=== PATIENT | female | born 1965 | race Caucasian/White ===

== ENCOUNTER 2018-10-14 11:53 | Inpatient (IN) | payer OTHER ==
[~2018-10-14] VITALS: Ht 175.3 cm; Wt 92.2 kg
[2018-10-14 12:06] VITALS: Ht 175.3 cm; Wt 92.2 kg
--- NOTE | 2018-10-14 12:32 | NUR ---
PATIENT BROUGHT IN BY HER FELLOW EMPLOYEE C/O CHEST PAIN THAT RADIATES TO THE BACK BETWEEN THE SHOULDER BLADES. PATIENT STATES PAIN STARTED TODAY AROUND 1130. PATIENT SAYS THAT SHE HAS BEEN UNDER A LOT OF STRESS LATELY AND FEELS THAT THIS MAY BE ANXIETY RELATED. PT ALSO STATES SHE TOOK .50MG OF ATIVAN AT 1130 WHICH HELPED RELIEVE SOME OF THE PAIN. BREATHING IS EVEN AND UNLABORED. NO ADDITIONAL S/S OF DISTRESS NOTED. PATIENT RECENTLY HAD SURGERY LAST WHERE SHE STATES THEY REMOVED PART OF HER COLON. SINCE THEN, SHE STATES SHE HAS INTERMITTENT PAIN IN HER LEFT LOWER QUADRANT. BOWEL SOUNDS PRESENT IN ALL 4 QUADRANTS. PATIENT LYING ON GURNEY RESTING. WILL CONTINUE TO MONITOR.
--- NOTE | 2018-10-14 12:58 | NUR ---
CORRECTION. PATIENT TOOK 0.5 MG OF ATIVAN AT 1130AM.
--- NOTE | 2018-10-14 13:12 | NUR ---
DR SAUNDERS AT BEDSIDE FOR MSE
--- NOTE | 2018-10-14 13:45 | NUR ---
X RAY IN BAY PERFORMING XRAY. BREATHING EVEN AND UNLABORED, NO S/S OF DISTRESS NOTED.
[2018-10-14 14:02] LABS: microscopic required? NO
[2018-10-14 14:15] LABS: BASOPHIL % 0.5 % (0-2); PLATELET COUNT 265 x10^3mcL (130-400); RED CELL DISTRIBUTION WIDTH 13.6 % (11.5-14.5)
[2018-10-14 14:22] LABS: UA SPECIFIC GRAVITY <=1.005 (1.005-1.035); urine erythrocyte NEGATIVE (NEGATIVE)
[2018-10-14 14:31] LABS: AMPHETAMINE QUAL UR NONE DETECTED (See below)
[2018-10-14 14:37] LABS: CARBON DIOXIDE 28.9 mmol/L (21-32); CHLORIDE SERUM 105 mmol/L (98-107); CREATININE SERUM 0.9 mg/dL (0.6-1.0); GFR1 > 60 mL/min; GLUCOSE SERUM 95 mg/dL (74-106); POTASSIUM SERUM 4.4 mmol/L (3.5-5.1); SODIUM SERUM 141 mmol/L (136-145)
[2018-10-14 14:41] LABS: ALBUMIN 3.5 g/dL (3.4-5.0); ALKALINE PHOSPHATASE 110 U/L (46-116); ALT/SGPT 32 U/L (14-59); AMYLASE 36 U/L (25-115); AST/SGOT 21 U/L (15-37); BILIRUBIN TOTAL 0.4 mg/dL (0.20-1.00); CHOLESTEROL 175 mg/dL (<200); LIPASE 138 IU/L (73-393); TOTAL PROTEIN, SERUM 7.3 g/dL (6.4-8.2)
[2018-10-14 14:42] LABS: HDL CHOLESTEROL 76 mg/dL (40-60)
[2018-10-14 14:49] LABS: T4(THYROXINE) 8.3 ug/dL (4.7-13.3)
--- NOTE | 2018-10-14 15:03 | NUR ---
PT IN ONI IN POSITION OF COMFORT ON CELL PHONE, RESP E/U, NO DISTRESS.
[2018-10-14] MEDS ORDERED: VENLAFAXINE HYD75 M1 PO (16:58)
[2018-10-14] MEDS ORDERED: METOPROLOL TART25 M1 PO (16:58)
[2018-10-14] MEDS ORDERED: LEVOXYL0.05 MG PO (16:59)
[2018-10-14 17:48] LABS: MAGNESIUM 2.3 mg/dL (1.8-2.4); PHOSPHOROUS 3.4 mg/dL (2.5-4.9)
--- NOTE | 2018-10-14 17:49 | NUR ---
REPORT CALLED TO CUONG REZA ON MS/T FOR FURTHER CARE OF OF PT
[2018-10-14 17:56] LABS: FREE T4 0.99 ng/dL (0.76-1.46); FREE THYROXINE INDEX 2.9 ug/dL (1.4-4.5); T4(THYROXINE) 8.8 ug/dL (4.7-13.3)
[2018-10-14 17:57] LABS: T3 TOTAL 1.18 ng/mL
[2018-10-14 18:02] LABS: CHOLESTEROL/HDL RATIO 2.3
--- NOTE | 2018-10-14 18:20 | NUR ---
RECEIVED PT FROM ER, REPORT GIVEN BY JUAQUIN BRENNAN. PT ARRIVED VIA GUERNEY ACCOMPANIED BY 2 FRIENDS. RESP EVEN AND LABORED. LUNG SOUNDS CTA, ON R/A. TELEMONITOR [address] READING NSR. PT DENIES CHEST PAIN, PRESSURE OR PALPIATIONS AT THIS TIME. ABDOMEN, SOFT, NONTENDER, NONDISTENDED. BOWEL SOUNDS ACTIVE. CDI. NO EDEMA NOTED. PERIPHERAL PULSES PALPABLE. IV CATH TO RFA PATENT, N/S LOCKED. SITE WNL. PT ORIENTED TO ROOM AND CALL LIGHT. BED IN LOW POSITION CALL LIGHT WITHIN REACH. ALL CARE WILL BE ENDORED TO MARIE ERZA.
[2018-10-14 18:23] VITALS: BP 131/95
--- NOTE | 2018-10-14 18:26 | NUR ---
RECEIVED PT FROM ED VIA SCAR. ORIENTED PT TO ROOM AND SURROUNDIGNS. IV NOTED TO RFA PATENT AND INTACT. TELE 13 PLACED ON PT READING NSR. INSTRUCTED PT ON THE USE OF CALL LIGHT FOR ASSISTANCE. ENDORSED PT TO PRIMARY NURSE ALYSE
--- NOTE | 2018-10-14 19:15 | NUR ---
RECEIVED PT IN BED EATING DINNER WITH FAMILY AT BEDSIDE.LUNG SOUND CTA. NO SOB NOTED. DENIES PAIN AT THIS TIME. IV SITE PATENT AND INTACT. BED IN LOWEST POSITION,CALL LIGHT WITHIN LUZ MARIA. WILL CONTINUE TO MONITOR.
[2018-10-14 20:54] VITALS: BP 114/82
--- NOTE | 2018-10-14 21:30 | NUR ---
PT WENT DOWN TO NUCLEAR [facility] FOR VQ SCAN VIA WHEELCHAIR ACCOMPANIED BY [employer].
--- NOTE | 2018-10-14 22:00 | NUR ---
PT CAME BACK FRM NUCLEAR MED.NO CP NOTED. NO SOB.NO INCIDENT HAPPENED. WILL CONTINUE TO MONITOR.
--- NOTE | 2018-10-14 22:30 | NUR ---
PT C/O ANXIETY. MEDICATED ATIVAN 1MG PO ORDERED.WILL MONITOR.
--- NOTE | 2018-10-15 05:17 | NUR ---
PT ASLEEP. NO SOB NOTED.NO C/O PRESURE OR CP.CALL LIGHT WITHIN REACH. WILL CONTINUE TO MONITOR.
[2018-10-15 05:23] VITALS: BP 102/54
--- NOTE | 2018-10-15 07:23 | NUR ---
CARE ENDORSED TO DAY NURSE ALYSE.
--- NOTE | 2018-10-15 07:40 | NUR ---
PT IS AAOX4, VERBALLY REPONSIVE. FOLLOWS COMMANDS. TELE [address] READING NSR. RESP EVEN AND UNLABORED, LUNG SOUNDS CTA, ON R/A. ABDOMEN SOFT, ROUND, NONTENDER, NONDISTENDED. SKIN CDI, NO EDEMA, PERIPHERAL PULSES PALPABLE. IV CATH TO RFA N/C LOCKED, SITE WNL. PT DENIES PAIN OR DISCOMFORT, NO CHEST PAIN, PALPITATIONS, PRESSURE OR SYNCOPE. CALL LIGHT WITHIN REACH. BED IN LOW POSTION.
[2018-10-15 08:35] LABS: BASOPHIL % 0.6 % (0-2); PLATELET COUNT 250 x10^3mcL (130-400); RED CELL DISTRIBUTION WIDTH 13.4 % (11.5-14.5)
--- NOTE | 2018-10-15 09:10 | NUR ---
DUE MEDS GIVEN, PT EDUCATED ON MEDICATIONS AND VERBALIZED UNDERSTANDING. B/P 124/81, HR 72. PT DENIES PAIN AND DISCOMFORT. RESP EVEN AND UNLABORED. NO DISTRESS NOTED.
[2018-10-15 09:11] LABS: CALCIUM 9.1 mg/dL (8.5-10.1); CARBON DIOXIDE 28.1 mmol/L (21-32); CHLORIDE SERUM 106 mmol/L (98-107); CREATININE SERUM 0.9 mg/dL (0.6-1.0); GFR1 > 60 mL/min; GLUCOSE SERUM 84 mg/dL (74-106); MAGNESIUM 2.1 mg/dL (1.8-2.4); PHOSPHOROUS 4.3 mg/dL (2.5-4.9); SODIUM SERUM 140 mmol/L (136-145)
[2018-10-15 09:47] VITALS: BP 139/79
--- NOTE | 2018-10-15 11:00 | NUR ---
REPORTED TO DR. PAULINO PT'S WBC DECREASED TO 3.1. NO NEW ORDERS AT THIS TIME.
--- NOTE | 2018-10-15 11:19 | NUR ---
REPORTED TO DR. PAULINO PT'S WBC COUNT = 3.1. NO NEW ORDERS AT THIS TIME.
[2018-10-15 13:22] VITALS: BP 118/78
--- NOTE | 2018-10-15 14:40 | NUR ---
PT SITTING UP IN BED VISITING WITH FRIENDS, DENIES CHEST PAIN OR PRESSURE. NO DISTRESS NOTED. CALL LIGHT WITHIN REACH.
[2018-10-15 14:44] LABS: BASOPHIL % 0.6 % (0-2); PLATELET COUNT 261 x10^3mcL (130-400); RED CELL DISTRIBUTION WIDTH 13.6 % (11.5-14.5)
[2018-10-15 16:02] VITALS: BP 118/78
[2018-10-15 16:35] VITALS: BP 123/65
--- NOTE | 2018-10-15 17:40 | NUR ---
PT DISCHARGED TO HOME IN NO DISTRESS. DISCHARGE ORDERS REVIEWED. ALL FORMS SIGNED. IV CATH TO RFA REMOVED INTACT. SITE WNL. VS: 97.8, 77, 18, 123/65, 99% ON R/A. PT DENIES PAIN AND DISCOMFORT AT TIME OF D/C. ALL PERSONAL BELONGINGS TAKEN HOME.
== END 2018-10-15 18:00 | disposition home or self-care (01) | DRG 206 ==
LOC: ED 11:53 → DU 16:38
PROVIDERS: Emergency Medicine; ADMIT Internal Medicine
DX: M94.0 Chondrocostal junction syndrome [Tietze] (principal); E03.9 Hypothyroidism, unspecified; E78.5 Hyperlipidemia, unspecified; F41.1 Generalized anxiety disorder; I10 Essential (primary) hypertension; Z90.710 Acquired absence of both cervix and uterus; Z90.49 Acquired absence of other specified parts of digestive tract
CPT/HCPCS: 83880; 84439; 85378; A9540; J1650; J2060; Q0092